=== PATIENT | male | born 1950 | race Hispanic/Latino ===

== ENCOUNTER 2016-11-20 10:37 | Emergency (ER) | payer MEDICARE ==
[2016-11-20 10:45] VITALS: BMI 16.0
[2016-11-20] MEDS ORDERED: HYDROmorphone 1 mg/ml ISec IVP STA (10:45)
--- NOTE | 2016-11-20 10:51 | ED PDOC ---
Arrival/HPI - General Chief Complaint: Pain, Chronic Time Seen by Provider: 11/20/16 10:44 Historian: Family (Brother) EM Caveat: Altered Mental Status - History of Present Illness Time/Duration: Prior to Arrival Symptom Onset: Gradual Symptom Course: Worsening Severity Level: Severe Activities at Onset: Rest Associated Symptoms (Text): 11/20/16 10:48 Patient has metastatic stage IV liver cancer. He is no longer receiving chemotherapy or radiation therapy. He does have a POLST and is a DNR. Hospice was at their home yesterday and offered pain management services, but the patient refused. The brother is fully aware that the patient is dying and he prefers to take him home, but he needs help with pain management. The patient does have fentanyl patches and multiple oral narcotic pain medications. I offered him narcotic pain medication IV at this time which he gladly accepts. He is requesting that no workup be done and I am in agreement. Past Medical History - Infectious Disease Hx of Infectious Diseases: None - Tetanus Immunization Tetanus Immunization: Unknown - Cardiac Hx Cardiac Disorders: No - Pulmonary Hx Respiratory Disorders: No - Neurological Hx Neurological Disorder: Yes Hx Seizures: Yes (four years ago) - HEENT Hx HEENT Disorder: No - Renal Hx Renal Disorder: No - Endocrine/Metabolic Hx Endocrine Disorders: Yes - Hematological/Oncological Hx Cancer: Yes (stage IV neuroendocrine) Hx Chemotherapy: Yes (two weeks ago. goes every two weeks) - Musculoskeletal/Rheumatological Hx Falls: No - Gastrointestinal Hx Gastrointestinal Disorders: No - Genitourinary/Gynecological Hx Reproductive Disorders: No - Psychiatric Hx Psychophysiologic Disorder: No Hx Substance Use: No - Surgical History Hx Musculoskeletal Surgery: Yes (torn ligaments) - Anesthesia Hx Anesthesia Reactions: No Hx Malignant Hyperthermia: No - Suicidal Assessment Feels Threatened In Home Enviroment: No Family/Social History - Physician Review Nursing Documentation Reviewed: Yes Family/Social History: Unknown Family HX Smoking Status: Never Smoked Hx Alcohol Use: No Hx Substance Use: No Hx Substance Use Treatment: No Allergies/Home Meds Allergies/Adverse Reactions: Allergies No Known Allergies Allergy (Verified 09/08/16 22:27) Home Medications: Home Meds Medication Instructions Recorded Confirmed Warfarin Sodium [Coumadin] 5 mg PO DAILY 07/07/15 11/20/16 Levetiracetam [Keppra] 500 mg PO BID 10/27/15 11/20/16 Gabapentin [Neurontin] 300 mg PO TID 11/20/16 11/20/16 oxyCODONE [oxyCODONE Immediate 10 mg PO Q8 11/20/16 11/20/16 Release Tab] Review of Systems - Review of Systems Systems not reviewed;Unavailable: Altered Mental Status Physical Exam Vital Signs Temp Pulse Resp BP Pulse Ox 11/20/16 13:01 124 H 15 98/63 L 93 L 11/20/16 10:46 98.8 F 146 H 22 125/88 82 L Appearance: Positive for: Ill-Appearing, Uncomfortable, Cachectic Pain Distress: Severe Mental Status: Positive for: Confused, Lethargic - Systems Exam Head: Present: Atraumatic, Normocephalic Pupils: Present: PERRL Extroacular Muscles: Present: EOMI Conjunctiva: Present: Normal Respiratory/Chest: Present: Clear to Auscultation, Good Air Exchange, Decreased Breath Sounds. No: Respiratory Distress, Accessory Muscle Use Cardiovascular: Present: Regular Rate and Rhythm, Normal S1, S2, Tachycardic. No: Murmurs Lower Extremity: Present: Normal Inspection. No: Edema Skin: Present: Other (Multiple ecchymotic areas) Medical Decision Making ED Course and Treatment: 11/20/16 11:46 Patient is more awake after 1 L of normal saline solution. His heart rate has improved. Brother is requesting the ambulance service to bring him home. They have been called. Saline will continue to run while we wait for the ambulance. 11/20/16 14:11 Discussed with . - Medication Orders Current Medication Orders: Discontinued Medications Hydromorphone HCl (Dilaudid) 1 mg IVP STAT STA Stop: 11/20/16 10:46 Last Admin: 11/20/16 10:52 Dose: 1 MG IVP Administration Document 11/20/16 10:52 SF (Rec: 11/20/16 10:52 SF [id number]) Charges for Administration # of IVP Administrations 1 Sodium Chloride (Sodium Chloride 0.9%) 1,000 mls @ 500 mls/hr IV ONCE ONE Stop: 11/20/16 12:55 Last Admin: 11/20/16 11:00 Dose: 500 MLS/HR eMAR Start Stop Document 11/20/16 11:00 SF (Rec: 11/20/16 11:24 [id number]) Intravenous Solution Start Date 11/20/16 Start Time 11:00 End Date 11/20/16 End time 13:00 Total Infusion Time 120 Sodium Chloride (Sodium Chloride 0.9%) 1,000 mls @ 500 mls/hr IV ONCE ONE Stop: 11/20/16 13:46 Ondansetron HCl (Zofran Inj) 4 mg IVP ONCE ONE Stop: 11/20/16 10:46 Last Admin: 11/20/16 10:52 Dose: 4 MG IVP Administration Document 11/20/16 10:52 SF (Rec: 11/20/16 10:52 [id number]) Charges for Administration # of IVP Administrations 1 Disposition/Present on Arrival - Present on Arrival Any Indicators Present on Arrival: No History of DVT/PE: No History of Uncontrolled Diabetes: No Urinary Catheter: No History of Decub. Ulcer: No History Surgical Site Infection Following: None - Disposition Have Diagnosis and Disposition been Completed?: Yes Diagnosis: Intractable back pain, Liver cancer, primary, with metastasis from liver to other site Disposition: HOME/ ROUTINE Disposition Time: 11:49 Patient Plan: Discharge Condition: SERIOUS Discharge Instructions (ExitCare): Dehydration (ED)
[2016-11-20 10:55] VITALS: TEMP 98.8
[2016-11-20] MEDS ORDERED: Sodium Chloride 0.9% 1,000 ML IV ONE ×2 (10:56→11:47)
[2016-11-20 13:02] VITALS: BP 98/63; PULSE 124; RESP 15; O2SAT 93
== END 2016-11-20 13:05 | disposition home or self-care (01) ==
LOC: ED 10:37
DX: M54.9 Dorsalgia, unspecified (principal); C22.9 Malignant neoplasm of liver, not specified as primary or secondary; Z66 Do not resuscitate
CPT/HCPCS: 96361; 96374; 96375; 99285; J1170; J2405; J7040